=== PATIENT | male | born 1960 | race Caucasian/White ===

== ENCOUNTER 2017-02-07 07:32 | Emergency (ER) | payer MEDICAID ==
[~2017-02-07] VITALS: Ht 193 cm; Wt 92.5 kg
[2017-02-07 07:56] VITALS: BP 156/102
== END 2017-02-07 08:39 | disposition home or self-care (01) ==
LOC: ER 07:32
DX: M10.061 Idiopathic gout, right knee (principal)

== ENCOUNTER 2017-06-03 08:19 | Emergency (ER) | payer MEDICAID ==
[~2017-06-03] VITALS: Ht 193 cm; Wt 88.5 kg
[2017-06-03 08:26] VITALS: BP 128/93
[2017-06-03 09:06] LABS: Basophils # (auto) 0 uL; Basophils % (auto) 0.3 % (0.0-2.0); Eosinophils # (auto) 0.1 uL; Eosinophils % (auto) 0.4 % (0.0-7.0); Hematocrit 47.5 % (41.0-53.0); Hemoglobin 15.9 g/dL (13.5-17.5); Lymphocytes # (auto) 1.5 uL; Lymphocytes % (auto) 11.9 % (10.0-50.0); Mean Corpuscular Hemoglobin 31.2 pg (28.0-32.0); Mean Corpuscular Hgb Conc. 33.5 g/dL (32.0-36.0); Mean Corpuscular Volume 93.2 fL (80.0-100.0); Mean Platelet Volume 7.8 fL (6.9-10.8); Monocytes # (auto) 1.1 uL; Monocytes % (auto) 8.8 % (0.0-12.0); Neutrophils # (auto) 9.8 uL; Neutrophils % (auto) 78.6 % (37.0-80.0); Platelet Count (auto) 289 10^3/uL (140-450); Red Cell Distribution Width 13.2 % (11.8-14.3); White Blood Cell 12.4 10^3/uL (4.4-10.8)
[2017-06-03 09:31] LABS: Urine Bilirubin Negative (Negative); Urine Blood 1+ /uL (Negative); Urine Color Yellow (Yellow); Urine Glucose Normal (Normal); Urine Ketone Negative (Negative); Urine Nitrite Negative (Negative); Urine RBC 6 /hpf (0 - 3); Urine Urobilinogen Normal (Negative); Urine pH 7.5 (5.0-8.0)
[2017-06-03 09:37] LABS: Alkaline Phosphatase 57 U/L (45-117); Anion Gap 8 (5-15); Aspartate Aminotransferase 15 U/L (15-37); Bilirubin, Total 0.7 mg/dL (0.2-1.0); Blood Urea Nitrogen 30 mg/dL (7-18); Calcium 9.1 mg/dL (8.5-10.1); Carbon Dioxide 28 mmol/L (21-32); Chloride 101 mmol/L (98-107); GFR African American 52 mL/min; GFR Non-African American 43 mL/min; Glucose 87 mg/dL (74-106); Potassium 4.2 mmol/L (3.5-5.1); Sodium 137 mmol/L (136-145); Total Protein 7.7 g/dL (6.4-8.2)
== END 2017-06-03 11:24 | disposition home or self-care (01) ==
LOC: ER 08:19
DX: G45.9 Transient cerebral ischemic attack, unspecified (principal); I10 Essential (primary) hypertension; M19.90 Unspecified osteoarthritis, unspecified site; M10.9 Gout, unspecified
CPT/HCPCS: 36415; 70450; 80053; 81001; 83735; 84484; 85025; 93005

== ENCOUNTER 2017-06-25 14:20 | Emergency (ER) | payer MEDICAID ==
[~2017-06-25] VITALS: Ht 193 cm; Wt 83.9 kg
[2017-06-25 15:46] LABS: Basophils # (auto) 0.1 uL; Basophils % (auto) 0.7 % (0.0-2.0); Eosinophils # (auto) 0.2 uL; Eosinophils % (auto) 2.2 % (0.0-7.0); Hematocrit 41.2 % (41.0-53.0); Hemoglobin 13.8 g/dL (13.5-17.5); Lymphocytes # (auto) 1.9 uL; Lymphocytes % (auto) 21.8 % (10.0-50.0); Mean Corpuscular Hemoglobin 31.4 pg (28.0-32.0); Mean Corpuscular Hgb Conc. 33.4 g/dL (32.0-36.0); Mean Corpuscular Volume 94.2 fL (80.0-100.0); Mean Platelet Volume 7.8 fL (6.9-10.8); Monocytes # (auto) 0.7 uL; Monocytes % (auto) 8.1 % (0.0-12.0); Neutrophils # (auto) 5.8 uL; Neutrophils % (auto) 67.2 % (37.0-80.0); Platelet Count (auto) 279 10^3/uL (140-450); Red Cell Distribution Width 12.8 % (11.8-14.3); White Blood Cell 8.6 10^3/uL (4.4-10.8)
[2017-06-25 16:00] LABS: Albumin 3.7 g/dL (3.4-5.0); Anion Gap 13 (5-15); Aspartate Aminotransferase 18 U/L (15-37); BUN/Creatinine Ratio 22.1; Blood Urea Nitrogen 50 mg/dL (7-18); Calcium 8.8 mg/dL (8.5-10.1); Carbon Dioxide 23 mmol/L (21-32); Chloride 106 mmol/L (98-107); GFR African American 39 mL/min; GFR Non-African American 32 mL/min; Glucose 93 mg/dL (74-106); Magnesium 2.1 mg/dL (1.6-2.6); Potassium 4.7 mmol/L (3.5-5.1); Sodium 142 mmol/L (136-145)
[2017-06-25 16:05] LABS: Alkaline Phosphatase 50 U/L (45-117); Bilirubin, Total 0.5 mg/dL (0.2-1.0); Total Protein 7.2 g/dL (6.4-8.2)
[2017-06-25 20:33] VITALS: BP 123/73
[2017-06-25 22:18] LABS: Urine Bilirubin Negative (Negative); Urine Blood 2+ /uL (Negative); Urine Color Yellow (Yellow); Urine Glucose Normal (Normal); Urine Ketone Negative (Negative); Urine Nitrite Negative (Negative); Urine RBC 6 /hpf (0 - 3); Urine Urobilinogen Normal (Negative); Urine pH 5.5 (5.0-8.0)
== END 2017-06-25 22:53 | disposition home or self-care (01) ==
LOC: EDBD 14:20 → ER 14:20
DX: F41.9 Anxiety disorder, unspecified (principal); I10 Essential (primary) hypertension
CPT/HCPCS: 36415; 71020; 80053; 81001; 83735; 84484; 85025; 93005

== ENCOUNTER 2017-07-09 07:03 | Day surgery (SDC) | payer MEDICAID ==
[~2017-07-09] VITALS: Ht 193 cm; Wt 87.5 kg
[~2017-07-09 07:03] MED LIST: LISI-646 PO
[2017-07-09] MEDS ORDERED: LIDOCAINE 2%HCL (LOCAL ANESTH.) INJ 20ML MDV ONE (07:43)
[2017-07-09] MEDS ORDERED: IODIXANOL 320MG/ML 100ML BTL IV ONE ×2 (07:43→09:23)
[2017-07-09] MEDS ORDERED: MIDAZOLAM HCL 1MG/1ML-2 ML VIAL ONE ×2 (09:08→09:20)
[2017-07-09] MEDS ORDERED: ANGIOMAX 250 MG VIAL IV ONE (09:08)
[2017-07-09] MEDS ORDERED: SODIUM CHL 0.9% 0 ML ONE (09:08)
[2017-07-09] MEDS ORDERED: fentaNYL CITRATE 100 MCG/2 ML VL ONE (09:08)
[2017-07-09] MEDS ORDERED: VERAPAMIL 2.5MG/ML INJ 2ML VIAL IV ONE (09:12)
[2017-07-09] MEDS ORDERED: NITROGLYCERIN 5MG/ML 10ML VIAL IV ONE (09:13)
[2017-07-09] MEDS ORDERED: DEXTROSE (50%) 50ML SYRG IV ONE (09:15)
[2017-07-09] MEDS ORDERED: InsuLIN REG 1unit/0.01ml Soln (100units/ml) IV ONE (09:15)
[2017-07-09] MEDS ORDERED: InsuLIN REG 1unit/0.01ml Soln (100units/ml) SC ONE (09:15)
[2017-07-09] MEDS ORDERED: SODIUM CHL 0.9% 50 ML ONE (09:17)
[2017-07-09] MEDS ORDERED: HEPARIN SODIUM (PORCINE) 5000 UNITS/ML 1ML VIAL ONE (09:28)
== END 2017-07-09 11:55 | disposition home or self-care (01) ==
LOC: CATH 07:03
PROVIDERS: ATTEND Internal Medicine
DX: I50.9 Heart failure, unspecified (principal); J44.9 Chronic obstructive pulmonary disease, unspecified; Z79.82 Long term (current) use of aspirin; F41.9 Anxiety disorder, unspecified; I10 Essential (primary) hypertension; M19.90 Unspecified osteoarthritis, unspecified site; R41.3 Other amnesia
CPT/HCPCS: 93458; C1769; C1894; J1644; J3010; J7030; J7042; 36415; 82962; 84132; 93005; 99152; 99153; J1815; J2250; J3490; Q9967

== ENCOUNTER 2018-05-03 22:59 | Emergency (ER) | payer MEDICAID ==
[~2018-05-03] VITALS: Ht 193 cm; Wt 90.7 kg
[2018-05-04 00:36] VITALS: BP 166/125
[2018-05-04] MEDS ORDERED: methylPREDNISolone SOD SUCC 125 MG/2 ML VL ONE (01:26)
== END 2018-05-04 07:00 | disposition home or self-care (01) ==
LOC: ER 22:59
DX: S93.491A Sprain of other ligament of right ankle, initial encounter (principal); M10.9 Gout, unspecified; M19.90 Unspecified osteoarthritis, unspecified site; W10.8XXA Fall (on) (from) other stairs and steps, initial encounter; Y93.89 Activity, other specified; Y99.8 Other external cause status; Y92.89 Other specified places as the place of occurrence of the external cause
CPT/HCPCS: 73610